=== PATIENT | female | born 1995 | race Caucasian/White ===

== ENCOUNTER 2017-04-15 08:56 | Emergency (ER) | payer MEDICAID ==
[2017-04-15] MEDS ORDERED: 0.9 % SODIUM CHLORIDE 1,000 ML BAG IV ONE (09:07)
[2017-04-15] MEDS ORDERED: ONDANSETRON HCL IV 4 MG/2 ML VIAL IVP ONE ×2 (09:07→10:38)
[2017-04-15] MEDS ORDERED: MECLIZINE 25 MG TABLET PO ONE (09:07)
--- NOTE | 2017-04-15 09:14 | Emergency Department Record ---
History of Present Illness - General Chief Complaint: Dizziness Stated Complaint: VOMITING,DIZZY Time Seen by Provider: 04/15/17 09:01 Source: Patient Mode of Arrival: Ambulatory Limitations: No limitations - History of Present Illness Initial Comments: 21 yo female presents with a feeling of room spinning. The onset was 11am yesterday. She rolled over in bed and the room began to spin. Since the onset she has room spinning when ever she turns her head. If she holds still the symptoms resolve. If she fixates on something it resolves but returns with changes in position. No headache, vision changes, weakness, speech changes, numbness or tingling. She is nauseated and has vomited. No recent health changes. She is normally healthy without chronic issues. MD Complaint: Dizziness -: Hour(s) (22) Timing: Sudden onset Description: Difficulty walking, Nausea, "Room spinning" History of Same: No History of Trauma: No Severity: Severe Improves With: Remaining still Worsens With: Movement, Position Associated Symptoms: Other (nausea) - University Coma Scale Eye Response: (4) Open spontaneously Motor Response: (6) Obeys commands Verbal Response: (5) Oriented Liliana Total: 15 - Symptoms of Stroke Symptoms of stroke: Dizziness - Related Data Home Medications Medication Instructions Recorded Confirmed Last Taken Norgestimate-Ethinyl Estradiol 1 each PO DAILY 04/15/17 04/15/17 04/13/17 [Ortho-Cyclen] Allergies Allergy/AdvReac Type Severity Reaction Status Date / Time No Known Drug Allergies Allergy Verified 04/15/17 09:16 Review of Systems Constitutional: Denies: Chills, Fever, Malaise, Weakness Eyes: Denies: Eye discharge, Eye pain, Photophobia, Vision change ENT: Denies: Congestion, Ear pain, Throat pain Respiratory: Denies: Cough, Dyspnea Cardiovascular: Denies: Chest pain, Palpitations, Syncope Endocrine: Denies: Fatigue Gastrointestinal: Reports: Nausea, Vomiting. Denies: Abdominal pain, Diarrhea Genitourinary: Denies: Dysuria, Urgency Musculoskeletal: Denies: Arthralgia, Back pain, Myalgia, Neck pain Skin: Denies: Bruising, Change in color, Rash Neurological: Reports: Abnormal gait (due to room spinning), Vertigo. Denies: Confusion, Headache, Numbness, Paresthesias, Seizure, Tingling, Tremors, Weakness Psychiatric: Denies: Anxiety Hematological/Lymphatic: Denies: Blood Clots, Easy bleeding, Easy bruising, Swollen glands Physical Exam - General General Appearance: Alert, Oriented x3, Cooperative, No acute distress Limitations: No limitations - Head Head exam: Atraumatic, Normocephalic, Normal inspection Head exam detail: negative: Abrasion, Contusion - Eye Eye exam: Normal appearance, PERRL, EOMI, Nystagmus (with left gaze, no vertical nystagmus). negative: Conjunctival injection, Periorbital swelling, Scleral icterus Pupils: Normal accommodation. negative: Irregular, Unequal - ENT ENT exam: Normal exam, Mucous membranes moist, Normal orophraynx, TM's normal bilaterally Ear exam: Normal external inspection Nasal Exam: Normal inspection. negative: Discharge Mouth exam: Normal external inspection Teeth exam: Normal inspection Throat exam: Normal inspection - Neck Neck exam: Normal inspection, Full ROM. negative: Lymphadenopathy, Tenderness - Respiratory Respiratory exam: Normal lung sounds bilaterally. negative: Respiratory distress - Cardiovascular Cardiovascular Exam: Regular rate, Normal rhythm, Normal heart sounds Peripheral Pulses: 2+: Radial (R), Radial (L) - GI/Abdominal GI/Abdominal exam: Soft. negative: Tenderness - Rectal Rectal exam: Deferred - exam: Deferred - Extremities Extremities exam: Normal inspection. negative: Joint swelling, Normal capillary refill, Pedal edema, Tenderness - Back Back exam: Reports: Normal inspection, Full ROM. Denies: CVA tenderness (R), CVA tenderness (L), Muscle spasm, Rash noted, Tenderness - Neurological Neurological exam: Alert, CN II-XII intact, Oriented X3, Reflexes normal, Other (Normal FTN, Normal tracking, Normal JOSE ANGEL, NO PND, Normal [facility] to [place]). negative: Altered, Motor sensory deficit - Psychiatric Psychiatric exam: Normal affect, Normal mood - Skin Skin exam: Dry, Intact, Normal color, Warm Course Vital Signs 04/15/17 09:02 Temperature 98.0 F Pulse Rate [ 97 H Pulse Ox Probe] Respiratory 22 Rate Blood Pressure 130/86 [Left Arm] Pulse Ox 97 - Reevaluation(s) Reevaluation #1: 04/15/17 09:15 The symptoms at this time are consistent with a peripheral vertigo It fatigues when still, lateral left nystagmus, no other lateralizing or focal finding. Abrupt onset. Resolves with still position. Normal FTN, Track, No dysmetria. 04/15/17 10:20 The CBC and BMP were reviewed No acute changes The HCG is negative 04/15/17 10:23 The patients dizziness is reported as worsening I recommend CT of the head given worsening symptoms The CT scanner is not functioning at this time I recommend ED to [facility] for CT and re-evaluation Medical Decision Making - Lab Data Result diagrams: 04/15/17 09:17 04/15/17 09:17 Disposition Disposition: Transfer Clinical Impression: Vertigo, Dizziness Disposition: Acute Care Hospital Transfer Transfer To: [facility] Reason For Transfer: HCT for dizziness Accepting Physician: [place] Time Discussed w/Accepting Physician: 10:27 Condition: (2) Stable Forms: Patient Portal Access Time of Disposition: 10:27 Quality - Quality Measures Quality Measures: N/A - Blood Pressure Screening Does Patient Have Any of the Following: No Blood Pressure Classification: Normal BP Reading Systolic Measurement: 89 Diastolic Measurement: 68 Screening for High Blood Pressure: < Normal BP, F/U Not Required > [G8783] Pre-Hypertensive Follow-up Interventions: Referral to alternative/primary care provider.
[2017-04-15 09:23] LABS: BASO % 0.3 % (0-6); EOS % 0.5 % (0-6); GRAN % 76.4 % (47-80); HEMATOCRIT 44.5 % (35.0-47.0); HEMOGLOBIN 14.9 gm/dl (11.6-16.0); LYMPH % 16.5 % (16-45); MEAN CELL VOLUME 90.3 fl (81-97); MEAN CORPUSCULAR HEMOGLOBIN 30.2 pg (27-33); MEAN CORPUSCULAR HGB CONC 33.5 g/dl (32-36); MONO % 6.3 % (0-9); PLATELET COUNT 263 K/uL (130-400); RED BLOOD COUNT 4.93 M/uL (3.80-5.40); RED CELL DISTRIBUTION WIDTH 13.7 % (11.5-14.5); WHITE BLOOD COUNT W/O DIFF 10.1 K/uL (4.2-12.2)
[2017-04-15 09:35] LABS: BLOOD UREA NITROGEN 14 mg/dL (6-20); CREATININE 0.7 mg/dL (0.5-0.9)
[2017-04-15 09:38] LABS: GLUCOSE,RANDOM 81 mg/dL (74-109)
== END 2017-04-15 10:51 | disposition short-term general hospital (02) ==
LOC: ER 08:56
DX: H81.392 Other peripheral vertigo, left ear (principal); R11.2 Nausea with vomiting, unspecified; R26.2 Difficulty in walking, not elsewhere classified
CPT/HCPCS: 80048; 84703; 85025; 96374; 96376; 99285; J2405; J7030

== ENCOUNTER 2017-05-27 09:11 | Emergency (ER) | payer MEDICAID ==
[2017-05-27 09:32] LABS: URINE APPEARANCE CLEAR; URINE BILIRUBIN NEGATIVE (NEGATIVE); URINE BLOOD LARGE (NEGATIVE); URINE GLUCOSE (UA) NEGATIVE (NEGATIVE); URINE KETONE NEGATIVE (NEGATIVE); URINE LEUKOCYTE ESTERASE SMALL (NEGATIVE); URINE NITRITE NEGATIVE (NEGATIVE); URINE PROTEIN NEGATIVE (NEGATIVE); URINE UROBILINOGEN 0.2 E.U./dL (0.20 - 1.00)
[2017-05-27 09:33] LABS: URINE COLOR YELLOW
[2017-05-27 09:43] LABS: URINE BACTERIA FEW; URINE EPITHELIAL CELLS 0 - 2 (FEW)
--- NOTE | 2017-05-27 09:59 | Emergency Department Record ---
History of Present Illness - General Chief complaint: Female Urogenital Problem Stated complaint: THINK GETTING UTI Time Seen by Provider: 05/27/17 09:47 Mode of Arrival: Ambulatory - History of Present Illness Initial comments: patient having dysuria and it started yesterday and she vaginal and uterine surgery at [facility] 05/11/2017 and that is healing nicely she had a septum in the vagina and uterus which was removed. Vaginal bleeding stopped one week ago and dysuria started yesterday. Patient currently not having sex Onset/Timin -: Days(s) Severity: Moderate Severity scale (1-10): 6 Quality: Burning Improves with: Urination Worsens with: None Associated Symptoms: Denies other symptoms - Related Data Previous Rx's Medication Instructions Recorded Ciprofloxacin HCl [Cipro] 500 mg PO Q12HR #20 tablet 05/27/17 Allergies Allergy/AdvReac Type Severity Reaction Status Date / Time No Known Drug Allergies Allergy Verified 05/27/17 09:21 Travel Screening - Travel/Exposure Within Last 30 Days Have you traveled within the last 30 days?: No - Travel/Exposure Within Last Year Have you traveled outside the [place] in the last year?: No - Additonal Travel Details Have you been exposed to anyone with a communicable illness?: No - Travel Symptoms Symptom Screening: None Review of Systems Reviewed: No additional complaints except as noted below Constitutional: Reports: As per HPI. Denies: Chills, Fever, Malaise, Night sweats, Weakness, Weight change Eyes: Reports: As per HPI. Denies: Eye discharge, Eye pain, Photophobia, Vision change ENT: Reports: As per HPI. Denies: Congestion, Dental pain, Ear pain, Epistaxis , Hearing loss, Throat pain Respiratory: Reports: As per HPI. Denies: Cough, Dyspnea, Hemoptysis, Stridor, Wheezes Cardiovascular: Reports: As per HPI. Denies: Arrhythmia, Chest pain, Dyspnea on exertion, Edema, Murmurs, Orthopnea, Palpitations, Paroxysmal nocturnal dyspnea, Rheumatic Fever, Syncope Endocrine: Reports: As per HPI. Denies: Fatigue, Heat or cold intolerance, Polydipsia, Polyuria Gastrointestinal: Reports: As per HPI. Denies: Abdominal pain, Constipation, Diarrhea, Hematemesis, Hematochezia, Melena, Nausea, Vomiting Genitourinary: Reports: As per HPI, Dysuria, Frequency. Denies: Abnormal menses , Discharge, Dyspareunia, Hematuria, Incontinence, Retention, Urgency Musculoskeletal: Reports: As per HPI. Denies: Arthralgia, Back pain, Gout, Joint swelling, Myalgia, Neck pain Skin: Reports: As per HPI. Denies: Bruising, Change in color, Change in hair/ nails, Lesions, Pruritus, Rash Neurological: Reports: As per HPI. Denies: Abnormal gait, Confusion, Headache, Numbness, Paresthesias, Seizure, Tingling, Tremors, Vertigo, Weakness Psychiatric: Reports: As per HPI. Denies: Anxiety, Auditory hallucinations, Depression, Homicidal thoughts, Suicidal thoughts, Visual hallucinations Hematological/Lymphatic: Reports: As per HPI. Denies: Anemia, Blood Clots, Easy bleeding, Easy bruising, Swollen glands Past Medical History - SOCIAL HISTORY Smoking Status: Never smoker Alcohol Use: None Drug Use: None - RESPIRATORY Hx Respiratory Disorders: No - CARDIOVASCULAR Hx Cardio Disorders: No - NEURO Hx Neuro Disorders: Yes Hx Dizziness: Yes (vertigo) Hx Headaches: Yes - GI Hx GI Disorders: No - Hx Genitourinary Disorders: Yes Hx UTI: Yes - ENDOCRINE Hx Endocrine Disorders: No - MUSCULOSKELETAL Hx Musculoskeletal Disorders: No - PSYCH Hx Psych Problems: No - HEMATOLOGY/ONCOLOGY Hx Hematology/Oncology Disorders: No Family Medical History Any Significant Family History?: No Family Hx Comment (NOT TO BE USED IN PLACE OF ITEMS BELOW): mom and grandmother susceptible to UTI's Physical Exam - General General Appearance: Alert, Oriented x3, Cooperative, No acute distress - Head Head exam: Normal inspection - Eye Eye exam: Normal appearance, PERRL Pupils: Normal accommodation - ENT ENT exam: Normal exam, Mucous membranes moist, Normal external ear exam, Normal orophraynx, TM's normal bilaterally Ear exam: Normal external inspection. negative: External canal tenderness Nasal Exam: Normal inspection. negative: Discharge, Sinus tenderness Mouth exam: Normal external inspection, Tongue normal Teeth exam: Normal inspection. negative: Dental caries Throat exam: Normal inspection. negative: Tonsillar erythema, Tonsillar exudate - Neck Neck exam: Normal inspection, Full ROM. negative: Tenderness - Respiratory Respiratory exam: Normal lung sounds bilaterally. negative: Respiratory distress - Cardiovascular Cardiovascular Exam: Regular rate, Normal rhythm, Normal heart sounds - GI/Abdominal GI/Abdominal exam: Soft, Normal bowel sounds. negative: Tenderness - Rectal Rectal exam: Deferred - exam: Deferred - Extremities Extremities exam: Normal inspection, Full ROM, Normal capillary refill. negative: Tenderness - Back Back exam: Reports: Normal inspection, Full ROM. Denies: Muscle spasm, Rash noted, Tenderness - Neurological Neurological exam: Alert, Normal gait, Oriented X3, Reflexes normal - Psychiatric Psychiatric exam: Normal affect, Normal mood - Skin Skin exam: Dry, Intact, Normal color, Warm Course Vital Signs 05/27/17 09:14 Temperature 98.2 F Pulse Rate 107 H Respiratory 18 Rate Blood Pressure 122/78 Pulse Ox 97 Medical Decision Making - Lab Data Lab Results 05/27/17 05/27/17 Range/Units 09:15 09:25 Urine Color Yellow Cancelled Urine Appearance Clear Cancelled Urine pH 6.0 Cancelled (5.0-8.0) Ur Specific [place] >= 1.030 Cancelled (1.002-1.030) Urine Protein Negative Cancelled (NEGATIVE) Urine Glucose (UA) Negative Cancelled (NEGATIVE) Urine Clinitest Cancelled Urine Ketones Negative Cancelled (NEGATIVE) Urine Blood Large H Cancelled (NEGATIVE) Urine Nitrite Negative Cancelled (NEGATIVE) Urine Bilirubin Negative Cancelled (NEGATIVE) Urine Ictotest Cancelled Prot Sulfosalicylic Acd Cancelled Urine Urobilinogen 0.2 Cancelled (0.20 - 1.00) E.U./dL Ur Leukocyte Esterase Small H Cancelled (NEGATIVE) Urine RBC 10 - 15 (NONE SEEN) Urine WBC 6 - 10 (0-2/hpf) Ur Epithelial Cells 0 - 2 (FEW) Urine Bacteria Few Disposition Clinical Impression: Urinary tract infection Qualifiers: Urinary tract infection type: acute cystitis Hematuria presence: without hematuria Qualified Code(s): N30.00 - Acute cystitis without hematuria Disposition: Home, Self-Care Condition: (1) Good Instructions: Urinary Tract Infection in Women (ED) Additional Instructions: call [facility] for follow up in 1-2 days and inform them on UTI cipro twice a day Prescriptions: Ciprofloxacin HCl [Cipro] 500 mg PO Q12HR #20 tablet Forms: Patient Portal Access Time of Disposition: 10:18 Quality - Quality Measures Quality Measures: N/A - Blood Pressure Screening Does Patient Have Any of the Following: No Blood Pressure Classification: Pre-Hypertensive BP Reading Systolic Measurement: 122 Diastolic Measurement: 78 Screening for High Blood Pressure: < Pre-Hypertensive BP, F/U Documented > [ G8950] Pre-Hypertensive Follow-up Interventions: Referral to alternative/primary care provider.
[2017-05-27] MEDS ORDERED: CIPROFLOXACIN HCL 500 MG TABLET PO ONE (10:23)
[2017-05-27 10:24] LABS: HCG,QUALITATIVE URINE NEGATIVE (NEGATIVE)
== END 2017-05-27 10:41 | disposition home or self-care (01) ==
LOC: ER 09:11
DX: N30.00 Acute cystitis without hematuria (principal)
CPT/HCPCS: 81001; 81025; 99282

== ENCOUNTER 2017-10-07 07:28 | Emergency (ER) | payer SELFPAY ==
[2017-10-07 07:51] LABS: URINE APPEARANCE SL CLOUDY; URINE BILIRUBIN NEGATIVE (NEGATIVE); URINE BLOOD SMALL (NEGATIVE); URINE COLOR YELLOW; URINE GLUCOSE (UA) NEGATIVE (NEGATIVE); URINE KETONE NEGATIVE (NEGATIVE); URINE LEUKOCYTE ESTERASE SMALL (NEGATIVE); URINE NITRITE NEGATIVE (NEGATIVE); URINE PROTEIN NEGATIVE (NEGATIVE); URINE UROBILINOGEN 0.2 E.U./dL (0.20 - 1.00)
[2017-10-07 07:58] LABS: URINE WBC 21 - 35 (0-2/hpf)
[2017-10-07 07:59] LABS: HCG,QUALITATIVE URINE NEGATIVE (NEGATIVE); URINE BACTERIA FEW
--- NOTE | 2017-10-07 07:59 | Emergency Department Record ---
History of Present Illness - General Chief complaint: Female Urogenital Problem Stated complaint: UTI Time Seen by Provider: 10/07/17 07:40 Source: Patient Mode of Arrival: Ambulatory Limitations: No limitations - History of Present Illness Initial comments: The patient woke up this AM with mild dysuria. She has a hx of UTI's and feels like she has another one coming on. She denies any back pain, AP, nausea, vomiting, or fever. MD Complaint: Dysuria Onset/Timin -: Hour(s) Worsens with: None LMP Date: 10/04/17 Gestational Age (wks) based on LMP: 0 Associated Symptoms: Dysuria - Related Data Previous Rx's Medication Instructions Recorded Nitrofurantoin [place] [Macrobid] 100 mg PO BID #14 capsule 10/07/17 Allergies Allergy/AdvReac Type Severity Reaction Status Date / Time No Known Drug Allergies Allergy Verified 05/27/17 09:21 Travel Screening - Travel/Exposure Within Last 30 Days Have you traveled within the last 30 days?: No - Travel/Exposure Within Last Year Have you traveled outside the [place] in the last year?: No - Additonal Travel Details Have you been exposed to anyone with a communicable illness?: No - Travel Symptoms Symptom Screening: None Review of Systems Constitutional: Denies: Chills, Fever Past Medical History - SOCIAL HISTORY Smoking Status: Never smoker Alcohol Use: None Drug Use: None - RESPIRATORY Hx Respiratory Disorders: No - CARDIOVASCULAR Hx Cardio Disorders: No - NEURO Hx Neuro Disorders: Yes Hx Dizziness: Yes (vertigo) Hx Headaches: Yes - GI Hx GI Disorders: No - Hx Genitourinary Disorders: Yes Hx UTI: Yes - ENDOCRINE Hx Endocrine Disorders: No - MUSCULOSKELETAL Hx Musculoskeletal Disorders: No - PSYCH Hx Psych Problems: No - HEMATOLOGY/ONCOLOGY Hx Hematology/Oncology Disorders: No Family Medical History Any Significant Family History?: No Family Hx Comment (NOT TO BE USED IN PLACE OF ITEMS BELOW): mom and grandmother susceptible to UTI's Physical Exam - General General Appearance: Alert, Oriented x3, Cooperative, No acute distress - Head Head exam: Atraumatic, Normocephalic, Normal inspection - Eye Eye exam: Normal appearance, PERRL - Neck Neck exam: Normal inspection - Respiratory Respiratory exam: Normal lung sounds bilaterally. negative: Respiratory distress - Cardiovascular Cardiovascular Exam: Regular rate, Normal rhythm, Normal heart sounds - GI/Abdominal GI/Abdominal exam: Soft, Normal bowel sounds. negative: Tenderness - Back Back exam: Reports: Normal inspection. Denies: CVA tenderness (R), CVA tenderness (L) Course Vital Signs 10/07/17 07:29 Temperature 98.1 F Pulse Rate 82 Respiratory 16 Rate Blood Pressure 132/74 Pulse Ox 99 - Reevaluation(s) Reevaluation #1: I did discuss the UA results with the patient and the need to F/U if not better in 2 days. 10/07/17 07:59 Disposition Disposition: Discharge Clinical Impression: Cystitis Disposition: Home, Self-Care Condition: (2) Stable Instructions: Urinary Tract Infection in Women (ED) Additional Instructions: PLease drink plenty of fluids and take the Macrobid as directed. Please see your family doctor if not better in 2 days. Return to the ER for any worsening symptoms, pain, fever, or vomiting. Prescriptions: Nitrofurantoin [place] [Macrobid] 100 mg PO BID #14 capsule Forms: Patient Portal Access Time of Disposition: 08:00 Quality - Quality Measures Quality Measures: N/A - Blood Pressure Screening View Details: Yes Does Patient Have Any of the Following: No Blood Pressure Classification: Normal BP Reading Systolic Measurement: 116 Diastolic Measurement: 69 Screening for High Blood Pressure: < Normal BP, F/U Not Required > [G8783]
== END 2017-10-07 08:10 | disposition home or self-care (01) ==
LOC: ER 07:28
DX: N30.91 Cystitis, unspecified with hematuria (principal)
CPT/HCPCS: 81001; 81025; 99282

== ENCOUNTER 2017-11-05 18:49 | Emergency (ER) | payer SELFPAY ==
--- NOTE | 2017-11-05 19:06 | Emergency Department Record ---
History of Present Illness - General Chief complaint: Female Urogenital Problem Stated complaint: ABDOMINAL PAIN,UTI Time Seen by Provider: 11/05/17 19:02 Source: Patient Mode of Arrival: Ambulatory Limitations: No limitations - History of Present Illness Initial comments: 22 yo female presents to ED for evaluation of dysuria symptoms for the past 2-3 days, reports "I think I have another UTI". Patient denies fevers, chills, or flank pain symptoms, denies vomiting as well. Patient also denies vaginal discharge symptoms. Patient does report suprapubic tenderness/pain she believes that is resulting from her infection. Patient denies health problems at her baseline. MD Complaint: Dysuria Onset/Timin -: Days(s) Severity: Severe Severity scale (1-10): 9 Consistency: Constant Patient : No Associated Symptoms: Denies other symptoms - Related Data Previous Rx's Medication Instructions Recorded Cephalexin [Keflex] 500 mg PO TID #21 cap 11/05/17 Allergies Allergy/AdvReac Type Severity Reaction Status Date / Time No Known Drug Allergies Allergy Verified 11/05/17 18:59 Travel Screening - Travel/Exposure Within Last 30 Days Have you traveled within the last 30 days?: No Review of Systems Constitutional: Denies: Chills, Fever, Malaise, Night sweats Eyes: Denies: Eye discharge, Eye pain ENT: Denies: Congestion, Ear pain, Epistaxis Respiratory: Denies: Cough, Dyspnea Cardiovascular: Denies: Chest pain, Dyspnea on exertion Endocrine: Denies: Fatigue, Heat or cold intolerance Gastrointestinal: Reports: Abdominal pain. Denies: Nausea, Vomiting Genitourinary: Reports: Dysuria, Frequency. Denies: Incontinence, Retention Musculoskeletal: Denies: Arthralgia, Back pain Skin: Denies: Bruising, Change in color Neurological: Denies: Abnormal gait, Confusion, Headache Psychiatric: Denies: Anxiety Hematological/Lymphatic: Denies: Anemia, Blood Clots Past Medical History - SOCIAL HISTORY Smoking Status: Never smoker Alcohol Use: None Drug Use: None - RESPIRATORY Hx Respiratory Disorders: No - CARDIOVASCULAR Hx Cardio Disorders: No - NEURO Hx Neuro Disorders: Yes Hx Dizziness: Yes (vertigo) Hx Headaches: Yes - GI Hx GI Disorders: No - Hx Genitourinary Disorders: Yes Hx UTI: Yes - ENDOCRINE Hx Endocrine Disorders: No - MUSCULOSKELETAL Hx Musculoskeletal Disorders: No - PSYCH Hx Psych Problems: No - HEMATOLOGY/ONCOLOGY Hx Hematology/Oncology Disorders: No Family Medical History Any Significant Family History?: Yes Family Hx Comment (NOT TO BE USED IN PLACE OF ITEMS BELOW): mom and grandmother susceptible to UTI's Physical Exam - General General Appearance: Alert, Oriented x3, Cooperative, Mild distress Limitations: No limitations - Head Head exam: Atraumatic, Normocephalic, Normal inspection Head exam detail: negative: Abrasion, Contusion, Granado's sign, General tenderness, Hematoma, Laceration - Eye Eye exam: Normal appearance. negative: Conjunctival injection, Periorbital swelling, Periorbital tenderness, Scleral icterus - ENT Ear exam: negative: Auricular hematoma, Auricular trauma Nasal Exam: negative: Active bleeding, Discharge, Dried blood Mouth exam: negative: Drooling, Laceration, Tongue elevation - Neck Neck exam: Normal inspection. negative: Meningismus, Tenderness - Respiratory Respiratory exam: Normal lung sounds bilaterally. negative: Respiratory distress, Rhonchi, Stridor, Wheezes - Cardiovascular Cardiovascular Exam: Regular rate, Normal rhythm, Normal heart sounds - GI/Abdominal GI/Abdominal exam: Soft, Tenderness (Mild-moderate TTP suprapubic region, no RLQ pain symptoms on examination). negative: Rebound, Rigid - Rectal Rectal exam: Deferred - exam: Deferred - Extremities Extremities exam: Normal inspection. negative: Calf tenderness, Pedal edema, Tenderness - Back Back exam: Denies: CVA tenderness (R), CVA tenderness (L) - Neurological Neurological exam: Alert, Normal gait, Oriented X3 - Psychiatric Psychiatric exam: Normal affect, Normal mood - Skin Skin exam: Normal color. negative: Abrasion Type of lesion: negative: abrasion Course Vital Signs 11/05/17 18:56 Temperature 98.0 F Pulse Rate 94 H Respiratory 20 Rate Blood Pressure 130/75 Pulse Ox 98 - Reevaluation(s) Reevaluation #1: 11/05/17 19:25 UA reviewed: >50 WBCs 3-6 Epithelial cells 2+ Bacteria HCG Negative Patient was updated on all results, will initiate treatment with Keflex as directed. Patient verbalizes understanding of all instructions. Disposition Disposition: Discharge Clinical Impression: Cystitis Disposition: Home, Self-Care Condition: (2) Stable Instructions: Interstitial Cystitis (ED) Additional Instructions: Return to ED if your symptoms worsen or if you have any concerns. Keflex as directed. Follow-up with your family doctor in 3-5 days as directed. Prescriptions: Cephalexin [Keflex] 500 mg PO TID #21 cap Forms: Patient Portal Access Time of Disposition: 19:28 Quality - Quality Measures Quality Measures: N/A - Blood Pressure Screening Does Patient Have Any of the Following: No Blood Pressure Classification: Pre-Hypertensive BP Reading Systolic Measurement: 130 Diastolic Measurement: 75 Screening for High Blood Pressure: < Pre-Hypertensive BP, F/U Documented > [ G8950] Pre-Hypertensive Follow-up Interventions: Referral to alternative/primary care provider.
[2017-11-05 19:10] LABS: URINE BILIRUBIN NEGATIVE (NEGATIVE); URINE BLOOD SMALL (NEGATIVE); URINE COLOR YELLOW; URINE GLUCOSE (UA) NEGATIVE (NEGATIVE); URINE KETONE NEGATIVE (NEGATIVE); URINE LEUKOCYTE ESTERASE MODERATE (NEGATIVE); URINE NITRITE NEGATIVE (NEGATIVE)
[2017-11-05 19:14] LABS: URINE APPEARANCE CLOUDY
[2017-11-05 19:15] LABS: URINE BACTERIA 2+; URINE WBC >50 (0-2/hpf)
[2017-11-05 19:16] LABS: URINE AMORPHOUS SEDIMENT 1+
[2017-11-05 19:34] LABS: HCG,QUALITATIVE URINE NEGATIVE (NEGATIVE)
== END 2017-11-05 19:53 | disposition home or self-care (01) ==
LOC: ER 18:49
DX: N30.10 Interstitial cystitis (chronic) without hematuria (principal); R11.0 Nausea
CPT/HCPCS: 81001; 81025; 99282

== ENCOUNTER 2017-12-15 17:24 | Emergency (ER) | payer SELFPAY ==
--- NOTE | 2017-12-15 17:58 | Emergency Department Record ---
History of Present Illness - General Chief complaint: Dental Stated complaint: TOOTH ACHE Time Seen by Provider: 12/15/17 17:56 Source: Patient Mode of Arrival: Ambulatory Limitations: No limitations - History of Present Illness Initial comments: 22 yo female presents to ED for evaluation of dental pain for the past 3 days. Patient reports that she has a cavity affecting a tooth in the left lower mandible, denies fevers, chills, or recent illness. Patient denies taking anything for her pain symptoms, and does report that she has a dentist in [place], [place]. Patient denies health problems at her baseline. MD complaint: Tooth pain Onset/Timin -: Days(s) Location: Tooth # Severity: Moderate Severity scale (1-10): 8 Quality: Aching Consistency: Constant Improves with: None Worsens with: None - Related Data Previous Rx's Medication Instructions Recorded Ibuprofen [Motrin] 800 mg PO Q6H PRN #30 tab 12/15/17 Penicillin V Potassium 500 mg PO QID #28 tablet 12/15/17 Allergies Allergy/AdvReac Type Severity Reaction Status Date / Time No Known Drug Allergies Allergy Verified 12/15/17 17:47 Travel Screening - Travel/Exposure Within Last 30 Days Have you traveled within the last 30 days?: Yes Location Detail:: [place] - Travel/Exposure Within Last Year Have you traveled outside the [place] in the last year?: No - Additonal Travel Details Have you been exposed to anyone with a communicable illness?: No - Travel Symptoms Symptom Screening: None Review of Systems Constitutional: Denies: Chills, Fever, Malaise, Night sweats Eyes: Denies: Eye discharge, Eye pain ENT: Reports: Dental pain. Denies: Congestion, Ear pain Respiratory: Denies: Cough, Dyspnea Cardiovascular: Denies: Chest pain, Dyspnea on exertion Endocrine: Denies: Fatigue, Heat or cold intolerance Gastrointestinal: Denies: Abdominal pain, Nausea, Vomiting Genitourinary: Denies: Retention, Urgency Musculoskeletal: Denies: Arthralgia, Back pain Skin: Denies: Bruising, Change in color Neurological: Denies: Abnormal gait, Confusion Psychiatric: Denies: Anxiety Hematological/Lymphatic: Denies: Anemia, Blood Clots Past Medical History - SOCIAL HISTORY Smoking Status: Never smoker Alcohol Use: None Drug Use: None - RESPIRATORY Hx Respiratory Disorders: No - CARDIOVASCULAR Hx Cardio Disorders: No - NEURO Hx Neuro Disorders: Yes Hx Dizziness: Yes (vertigo) Hx Headaches: Yes - GI Hx GI Disorders: No - Hx Genitourinary Disorders: Yes Hx UTI: Yes - ENDOCRINE Hx Endocrine Disorders: No - MUSCULOSKELETAL Hx Musculoskeletal Disorders: No - PSYCH Hx Psych Problems: No - HEMATOLOGY/ONCOLOGY Hx Hematology/Oncology Disorders: No Family Medical History Any Significant Family History?: No Family Hx Comment (NOT TO BE USED IN PLACE OF ITEMS BELOW): mom and grandmother susceptible to UTI's Physical Exam - General General Appearance: Alert, Oriented x3, Cooperative, Mild distress - Head Head exam: Atraumatic, Normocephalic, Normal inspection Head exam detail: negative: Abrasion, Contusion, Granado's sign, General tenderness, Hematoma, Laceration - Eye Eye exam: Normal appearance. negative: Conjunctival injection, Periorbital swelling, Periorbital tenderness, Scleral icterus - ENT Ear exam: negative: Auricular hematoma, Auricular trauma Nasal Exam: negative: Active bleeding, Discharge, Dried blood, Foreign body Mouth exam: negative: Drooling, Laceration, Muffled voice, Tongue elevation Teeth exam: Dental caries, Dental tenderness # Throat exam: negative: Tonsillar erythema, Tonsillomegaly, R peritonsillar mass , L peritonsillar mass Image of Mouth/Teeth: 1 - Dental caries present without gingival abscess - Neck Neck exam: Normal inspection. negative: Meningismus, Tenderness - Respiratory Respiratory exam: Normal lung sounds bilaterally. negative: Respiratory distress, Rhonchi, Stridor - Cardiovascular Cardiovascular Exam: Regular rate, Normal rhythm, Normal heart sounds - GI/Abdominal GI/Abdominal exam: Soft. negative: Rebound, Rigid, Tenderness - Rectal Rectal exam: Deferred - exam: Deferred - Extremities Extremities exam: Normal inspection. negative: Calf tenderness, Pedal edema, Tenderness - Back Back exam: Denies: CVA tenderness (R), CVA tenderness (L) - Neurological Neurological exam: Alert, Normal gait, Oriented X3 - Psychiatric Psychiatric exam: Normal affect, Normal mood - Skin Skin exam: Normal color. negative: Abrasion Type of lesion: negative: abrasion Course Vital Signs 12/15/17 17:38 Temperature 98.9 F Pulse Rate 92 H Respiratory 16 Rate Blood Pressure 124/82 Pulse Ox 100 - Reevaluation(s) Reevaluation #1: 12/15/17 18:01 Patient was seen and examined, no gingival abscess is present on examination. Will treat for her dental caries with Pen VK and Motrin 800 mg as directed, patient was instructed to call her Dentist Sunday morning for follow-up appointment. Patient agrees with the plan of care as discussed and appears stable for discharge at this time. Disposition Disposition: Discharge Clinical Impression: Dental caries Disposition: Home, Self-Care Condition: (2) Stable Instructions: Dental Abscess (ED) Additional Instructions: Return to ED if your symptoms worsen or if you have any concerns. Motrin 800 mg and Pen VK as directed. Call your Dentist Sunday for an appointment in 1-3 days as directed. Prescriptions: Ibuprofen [Motrin] 800 mg PO Q6H PRN #30 tab PRN Reason: Pain - Mild To Moderate (1-7) Penicillin V Potassium 500 mg PO QID #28 tablet Forms: Patient Portal Access Time of Disposition: 17:58 Quality - Quality Measures Quality Measures: N/A - Blood Pressure Screening Does Patient Have Any of the Following: No Blood Pressure Classification: Pre-Hypertensive BP Reading Systolic Measurement: 124 Diastolic Measurement: 82 Screening for High Blood Pressure: < Pre-Hypertensive BP, F/U Documented > [ [id number]] Pre-Hypertensive Follow-up Interventions: Referral to alternative/primary care provider.
[2017-12-15] MEDS ORDERED: PENICILLIN V POTASSIUM 250 MG TAB PO ONE (18:09)
== END 2017-12-15 18:13 | disposition home or self-care (01) ==
LOC: ER 17:24
DX: K02.9 Dental caries, unspecified (principal)
CPT/HCPCS: 99282